=== PATIENT | female | born 1985 | race Two or more races ===

== ENCOUNTER 2017-04-20 09:30 | Emergency (ER) | payer OTHER ==
[~2017-04-20] VITALS: Ht 152.4 cm; Wt 52.2 kg
--- NOTE | 2017-04-20 09:36 | NUR ---
PT CALLED TO TRIAGE, PT DOES NOT WANT TO BE TRIAGED AT THIS TIME
[2017-04-20 09:55] VITALS: BP 129/62
--- NOTE | 2017-04-20 10:00 | NUR ---
ASSISTED MD MAHER PELVIC EXAM.
== END 2017-04-20 10:27 | disposition home or self-care (01) ==
LOC: ER 09:33
DX: N90.89 Other specified noninflammatory disorders of vulva and perineum (principal)
CPT/HCPCS: 99281; A4606; Z7610; Z7502

== ENCOUNTER 2018-04-25 18:16 | Emergency (ER) | payer OTHER ==
[~2018-04-25] VITALS: Ht 152.4 cm; Wt 54.4 kg
[2018-04-25 18:16] VITALS: BP 122/74
--- NOTE | 2018-04-25 19:15 | NUR ---
pt providing urine sample. received verbal order from Arlyn PRIEST for UA.
[2018-04-25 19:38] LABS: APPEARANCE,URINE CLEAR (CLEAR); BILIRUBIN,URINE NEGATIVE (NEGATIVE); BLOOD, URINE 1+ Ery/uL (NEGATIVE); COLOR,URINE YELLOW (YELLOW); KETONES,URINE NEGATIVE (NEGATIVE); LEUKOCYTE ESTERASE ,URINE 1+ (NEGATIVE); NITRITE, URINE NEGATIVE (NEGATIVE); PH,URINE 6.5 (5.0-8.0); PROTEIN,URINE NEGATIVE (NEGATIVE); UGLUCOSE NEGATIVE (NEGATIVE); UROBILINOGEN,URINE 0.2 EU/dL (0.2)
[2018-04-25 19:46] LABS: BACTERIA,URINE Rare /HPF (None Seen); MUCUS,URINE Few /LPF (None Seen); SQUAMOUS EPITHELIAL CELL,UR Few /HPF (None Seen)
--- NOTE | 2018-04-25 20:01 | NUR ---
CALLED LAB FOR STAT URINE PREG
== END 2018-04-25 20:26 | disposition home or self-care (01) ==
LOC: ER 18:32
DX: N39.0 Urinary tract infection, site not specified (principal); Z98.890 Other specified postprocedural states
CPT/HCPCS: 81000-TC; 84703-TC; 87086-TC; 87186-TC; A4606; Z7610

== ENCOUNTER 2018-08-26 21:37 | Emergency (ER) | payer OTHER ==
[~2018-08-26] VITALS: Ht 152.4 cm; Wt 55.8 kg
[2018-08-26 21:55] VITALS: BP 111/77
[2018-08-26 22:50] LABS: APPEARANCE,URINE CLEAR (CLEAR); BILIRUBIN,URINE 1+ (NEGATIVE); BLOOD, URINE NEGATIVE Ery/uL (NEGATIVE); COLOR,URINE YELLOW (YELLOW); KETONES,URINE TRACE (NEGATIVE); LEUKOCYTE ESTERASE ,URINE NEGATIVE (NEGATIVE); NITRITE, URINE NEGATIVE (NEGATIVE); PH,URINE 5.5 (5.0-8.0); PROTEIN,URINE TRACE mg/dl (NEGATIVE); UGLUCOSE NEGATIVE (NEGATIVE); UROBILINOGEN,URINE 0.2 EU/dL (0.2)
[2018-08-26 22:58] LABS: BACTERIA,URINE None seen /HPF (None Seen); CALCIUM OXALATE CRYSTALS,UR Many /HPF (None Seen); MUCUS,URINE Few /LPF (None Seen); RBC,URINE 0-2 /HPF (0-2); SQUAMOUS EPITHELIAL CELL,UR Few /HPF (None Seen)
== END 2018-08-26 23:38 | disposition home or self-care (01) ==
LOC: ER 21:40
DX: N39.0 Urinary tract infection, site not specified (principal); N89.8 Other specified noninflammatory disorders of vagina; Z98.890 Other specified postprocedural states
CPT/HCPCS: 81000-TC; 84703-TC

== ENCOUNTER 2018-12-14 13:09 | Emergency (ER) | payer OTHER ==
[~2018-12-14] VITALS: Ht 152.4 cm; Wt 54.4 kg
--- NOTE | 2018-12-14 13:23 | NUR ---
patient came in the ER c/o pelvic pain and dysuria. Ambulatory with steady gait. on room air, breathing evenly and unlabored. Kept comfortable, will continue to monitor accordingly.
[2018-12-14 13:48] LABS: APPEARANCE,URINE Clear (CLEAR); BILIRUBIN,URINE Negative (NEGATIVE); BLOOD, URINE Negative Ery/uL (NEGATIVE); COLOR,URINE Yellow (YELLOW); KETONES,URINE Negative (NEGATIVE); LEUKOCYTE ESTERASE ,URINE Negative (NEGATIVE); NITRITE, URINE Negative (NEGATIVE); PROTEIN,URINE Negative (NEGATIVE); UGLUCOSE Negative (NEGATIVE); UROBILINOGEN,URINE 0.2 EU/dL (0.2)
[2018-12-14 15:22] VITALS: BP 115/71
--- NOTE | 2018-12-14 15:24 | NUR ---
Patient discharged to home in stable condition. Written and verbal after care instructions given. Patient verbalizes understanding of instruction.
== END 2018-12-14 15:23 | disposition home or self-care (01) ==
LOC: ER 13:09
DX: N76.0 Acute vaginitis (principal); Z98.890 Other specified postprocedural states
CPT/HCPCS: 81000-TC; 84703-TC; 87086-TC; 87210-TC; 87491; 87591

== ENCOUNTER 2023-07-08 13:13 | Emergency (ER) | payer OTHER ==
[~2023-07-08] VITALS: Ht 149.9 cm; Wt 49.9 kg
[2023-07-08] MEDS ORDERED: CEFTRIAXONE 500 MG VIAL ONE (13:46)
[2023-07-08] MEDS: CEFTRIAXONE 1 G VIAL IM ONE (13:54)
[2023-07-08] MEDS ORDERED: DOXY100C2 PO (15:06)
[2023-07-08] MEDS ORDERED: ACYC400T19 PO (15:06)
[2023-07-08 15:11] VITALS: BP 116/67; TEMP 98.3; O2SAT 98
[2023-07-09 11:09] LABS: RAPID PLASMA REAGIN QUAL. Non Reactive (Non Reactive)
== END 2023-07-08 15:12 | disposition home or self-care (01) ==
LOC: ER 13:20
DX: A60.00 Herpesviral infection of urogenital system, unspecified (principal); A64 Unspecified sexually transmitted disease; B07.8 Other viral warts; N89.8 Other specified noninflammatory disorders of vagina; Z79.899 Other long term (current) drug therapy
CPT/HCPCS: 99284; 86592; 86593; 96372; 87491 ×2; 87591; J0696

== ENCOUNTER 2023-07-21 16:49 | Emergency (ER) | payer OTHER ==
[~2023-07-21] VITALS: Ht 149.9 cm; Wt 49.9 kg
[~2023-07-21 16:49] MED LIST: ACYC400T19 PO; DOXY100C2 PO
[2023-07-21 18:26] VITALS: BP 118/76; TEMP 98.2; O2SAT 98
== END 2023-07-21 18:27 | disposition home or self-care (01) ==
LOC: ER 16:56
DX: M79.631 Pain in right forearm (principal); M54.50 Low back pain, unspecified; V89.2XXA Person injured in unspecified motor-vehicle accident, traffic, initial encounter; Y93.89 Activity, other specified; Y92.89 Other specified places as the place of occurrence of the external cause; Y99.8 Other external cause status
CPT/HCPCS: 72110-TC; 73090-TC; 73130-TC